=== PATIENT | male | born 1985 | race Asian ===

== ENCOUNTER 2019-06-19 12:38 | Inpatient (IN) | payer OTHER ==
[~2019-06-19] VITALS: Ht 167.6 cm; Wt 59.5 kg
[2019-06-19 14:10] LABS: RED CELL DISTRIBUTION WIDTH 13.3 % (11.5-14.5)
[2019-06-19 14:17] LABS: PLATELET COUNT 476 x10^3mcL (130-400)
[2019-06-19 14:36] LABS: CALCIUM 8.9 mg/dL (8.5-10.1); CARBON DIOXIDE 27.9 mmol/L (21-32); CHLORIDE SERUM 97 mmol/L (98-107); GFR1 > 60 mL/min; GLUCOSE SERUM 102 mg/dL (74-106); POTASSIUM SERUM 4.5 mmol/L (3.5-5.1); SODIUM SERUM 135 mmol/L (136-145)
[2019-06-19 14:48] LABS: ALKALINE PHOSPHATASE 130 U/L (46-116); ALT/SGPT 116 U/L (16-63); AST/SGOT 48 U/L (15-37); BILIRUBIN TOTAL 1.1 mg/dL (0.20-1.00)
[2019-06-19 14:49] LABS: ALBUMIN 3.1 g/dL (3.4-5.0); TOTAL PROTEIN, SERUM 8.7 g/dL (6.4-8.2)
[2019-06-19 14:51] LABS: BAND NEUTROPHIL 10 % (0-10); BASOPHIL 0 % (0-2); MONOCYTE 8 % (0-7); PLATELET MORPHOLOGY PLATELETS INCREASED; SEGMENTED NEUTROPHILS 73 % (37-75); rbc morphology (normal/abnorm) ABNORMAL (NORMAL)
[2019-06-19 18:38] VITALS: BP 122/75
[2019-06-19 18:43] VITALS: Ht 167.6 cm; Wt 59.5 kg
[2019-06-19 19:45] VITALS: BP 134/62
[2019-06-20 05:46] VITALS: BP 111/64
[2019-06-20 06:54] LABS: MAGNESIUM 2.2 mg/dL (1.8-2.4); PHOSPHOROUS 3.4 mg/dL (2.5-4.9)
[2019-06-20 07:07] LABS: FREE T4 1.38 ng/dL (0.76-1.46); FREE THYROXINE INDEX 2.5 ug/dL (1.4-4.5); T4(THYROXINE) 6.7 ug/dL (4.7-13.3)
[2019-06-20 07:59] VITALS: BP 109/63
[2019-06-20 08:20] LABS: T3 TOTAL 0.82 ng/mL
[2019-06-20 11:19] VITALS: BP 119/70
[2019-06-20 13:27] LABS: RED CELL DISTRIBUTION WIDTH 13.4 % (11.5-14.5)
[2019-06-20 13:28] LABS: PLATELET COUNT 468 x10^3mcL (130-400)
[2019-06-20 13:44] LABS: BAND NEUTROPHIL 18 % (0-10); METAMYELOCTE 2 % (0-2); MONOCYTE 5 % (0-7); MYELOCYTE 1 % (0-2); SEGMENTED NEUTROPHILS 61 % (37-75); rbc morphology (normal/abnorm) NORMAL (NORMAL)
[2019-06-20 13:45] LABS: PLATELET MORPHOLOGY PLATELETS INCREASED
[2019-06-20 16:32] VITALS: BP 107/68
[2019-06-20 18:27] LABS: RED CELL DISTRIBUTION WIDTH 13.6 % (11.5-14.5)
[2019-06-20 18:36] LABS: PLATELET COUNT 499 x10^3mcL (130-400)
[2019-06-20 19:04] LABS: BAND NEUTROPHIL 6 % (0-10); BASOPHIL 0 % (0-2); MONOCYTE 2 % (0-7); SEGMENTED NEUTROPHILS 76 % (37-75)
[2019-06-20 19:05] LABS: PLATELET MORPHOLOGY PLATELETS INCREASED; rbc morphology (normal/abnorm) NORMAL (NORMAL)
[2019-06-20 20:03] VITALS: BP 116/67
[2019-06-21 05:55] VITALS: BP 116/70
[2019-06-21 06:43] LABS: CALCIUM 8.2 mg/dL (8.5-10.1); CARBON DIOXIDE 29.1 mmol/L (21-32); CHLORIDE SERUM 102 mmol/L (98-107); CREATININE SERUM 0.8 mg/dL (0.7-1.3); GFR1 > 60 mL/min; GLUCOSE SERUM 97 mg/dL (74-106); MAGNESIUM 2.2 mg/dL (1.8-2.4); RED CELL DISTRIBUTION WIDTH 13.6 % (11.5-14.5); SODIUM SERUM 139 mmol/L (136-145)
[2019-06-21 07:34] VITALS: BP 119/74
[2019-06-21 09:45] LABS: BAND NEUTROPHIL 12 % (0-10); SEGMENTED NEUTROPHILS 62 % (37-75)
[2019-06-21 09:46] LABS: METAMYELOCTE 1 % (0-2); MONOCYTE 8 % (0-7); MYELOCYTE 1 % (0-2); rbc morphology (normal/abnorm) NORMAL (NORMAL)
[2019-06-21 09:49] LABS: PLATELET COUNT 511 x10^3mcL (130-400)
[2019-06-21 11:30] VITALS: BP 126/72
[2019-06-21 17:46] VITALS: BP 129/89
[2019-06-21 20:29] VITALS: BP 120/74
[2019-06-22 05:17] VITALS: BP 129/81
[2019-06-22 06:28] LABS: BASOPHIL % 0.3 % (0-2); RED CELL DISTRIBUTION WIDTH 13.6 % (11.5-14.5)
[2019-06-22 06:56] LABS: CALCIUM 8.2 mg/dL (8.5-10.1); CARBON DIOXIDE 26.9 mmol/L (21-32); CHLORIDE SERUM 104 mmol/L (98-107); CREATININE SERUM 0.6 mg/dL (0.7-1.3); GFR1 > 60 mL/min; GLUCOSE SERUM 96 mg/dL (74-106); MAGNESIUM 2.1 mg/dL (1.8-2.4); POTASSIUM SERUM 4.3 mmol/L (3.5-5.1); SODIUM SERUM 138 mmol/L (136-145)
[2019-06-22 07:23] LABS: PLATELET COUNT 523 x10^3mcL (130-400)
[2019-06-22 08:44] VITALS: BP 127/79
[2019-06-22] MEDS ORDERED: AUGMENTIN 875-1 EACH PO (09:49)
[2019-06-22 13:12] VITALS: BP 127/79
[2019-06-22 13:22] VITALS: BP 118/76
== END 2019-06-22 16:06 | disposition home or self-care (01) | DRG 663 ==
LOC: ED 12:38 → MU 17:32
PROVIDERS: Emergency Medicine; Internal Medicine Hematology & Oncology; Internal Medicine Pulmonary Disease; ADMIT Hospitalist
DX: R59.1 Generalized enlarged lymph nodes (principal); D72.829 Elevated white blood cell count, unspecified; R74.0 Nonspecific elevation of levels of transaminase and lactic acid dehydrogenase [LDH]
CPT/HCPCS: 84439; G0378; J1644; J2270; J7030; Q9967